=== PATIENT | female | born 1980 | race Two or more races ===

== ENCOUNTER 2019-11-22 13:37 | Emergency (ER) | payer SELFPAY ==
[~2019-11-22] VITALS: Ht 157.5 cm; Wt 51.7 kg
[2019-11-22 13:46] VITALS: BP 124/94
--- NOTE | 2019-11-22 14:24 | NUR ---
ER PROVIDER PRASHANT, IN RESP TRIAGE AREA. PT ASSESSMENT DISCUSSED, AND PRASHANT INSTRUCTED PT ON HOME ISOLATION, GOOD HAND HYGIENE, OTC TYLENOL AND IF HER SYMPTOMS WORSEN, SHE DEVELOPS A ESTRELLA, FEVER NOT RESPONDING TO TYLENOL, OR SOB SHE SHOULD RETURN TO THE EMERGENCY DEP.T PT VERBALIZED UNDERSTANDING. PT PRIMARY LANGUAGE PANMOISESIT, BUT WAS ABLE TO COVERSE WITH US AND ASK APPROPRIATE QUESTIONS.
--- NOTE | 2019-11-22 14:27 | NUR ---
PT LEFT FROM RESP WAITING AREA BEFORE REC' D/C PAPERWORK.
== END 2019-11-22 14:25 | disposition home or self-care (01) ==
LOC: ED 14:00
DX: B34.9 Viral infection, unspecified (principal)
CPT/HCPCS: 99282

== ENCOUNTER 2019-11-25 20:31 | Emergency (ER) | payer SELFPAY ==
[~2019-11-25] VITALS: Ht 142.2 cm; Wt 51.0 kg
--- NOTE | 2019-11-25 21:07 | NUR ---
Patient presents to ER c/o fever yesterday. Patient states she was seen and had COVID testing done. Patient was prescribed abx, tessalon pearls, and alb inhalor, which patient states she is taking. Patient denies resp complaints today. Patient denies taking OTC meds today. Patient states she came here today "because I'm scared of the coronavirus and my kids getting it." Patient states she has abd pain which she can't describe. Patient is in NAD. Respirations even and unlabored.
[2019-11-25] MEDS ORDERED: IBUPROFEN 800 MG TABLET PO ONE (21:27)
[2019-11-25] MEDS ORDERED: ACETAMINOPHEN 500 MG TABLET PO ONE (21:30)
[2019-11-25] MEDS ORDERED: ACETAMINOPHEN 500 MG TABLET ONE (21:54)
[2019-11-25] MEDS ORDERED: IBUPROFEN 200 MG TABLET ONE (21:55)
[2019-11-25 21:59] VITALS: BP 116/83
[2019-11-25] MEDS ORDERED: AZITHROMYCIN 250 MG TABLET ONE (22:24)
[2019-11-25] MEDS ORDERED: AZITHROMYCIN 500 MG TABLET PO ONE (22:30)
== END 2019-11-25 22:29 | disposition home or self-care (01) ==
LOC: ED 21:38
DX: J06.9 Acute upper respiratory infection, unspecified (principal); J15.9 Unspecified bacterial pneumonia; R50.9 Fever, unspecified; E11.9 Type 2 diabetes mellitus without complications
CPT/HCPCS: 71045; 99284